=== PATIENT | female | born 1975 | race African-American/Black ===

== ENCOUNTER 2019-08-30 08:22 | Emergency (ER) | payer OTHER ==
[~2019-08-30] VITALS: Ht 172.7 cm; Wt 81.7 kg
[2019-08-30] MEDS ORDERED: PENICILLIN VK500 M1 PO (09:16)
[2019-08-30] MEDS ORDERED: IBUPROFEN 600600 M1 PO (09:16)
[2019-08-30] MEDS ORDERED: DIFLUCAN150 MG PO (09:16)
[2019-08-30] MEDS ORDERED: PROTONIX 20 MG20 MG PO (09:16)
[2019-08-30 09:20] VITALS: BP 121/70
== END 2019-08-30 09:32 | disposition home or self-care (01) ==
LOC: ER 08:22
DX: K05.00 Acute gingivitis, plaque induced (principal); Z87.442 Personal history of urinary calculi

== ENCOUNTER 2020-01-04 10:29 | Emergency (ER) | payer OTHER ==
[~2020-01-04] VITALS: Ht 172.7 cm; Wt 81.7 kg
[~2020-01-04 10:29] MED LIST: DIFLUCAN150 MG PO; IBUPROFEN 600600 M1 PO; PENICILLIN VK500 M1 PO; PROTONIX 20 MG20 MG PO
[2020-01-04] MEDS ORDERED: ADVIL200 M3 PO (10:45)
[2020-01-04] MEDS ORDERED: ADVIL100 M3 PO (10:47)
[2020-01-04 11:28] LABS: ABSOLUTE NEUTROPHILS 1.8 thou/uL (1.4-8.2); BASOPHILS 0.9 % (0.0-2.0); EOSINOPHILS 0.6 % (0.0-3.0); HEMATOCRIT 36.4 % (37.0-47.0); HEMOGLOBIN 11.7 gm/dL (12.0-15.0); LYMPHOCYTES 37.2 % (24.0-44.0); MCH 27.3 pg (26.0-34.0); MCHC 32.1 g/dL (28.0-37.0); MCV 85.3 fL (80.0-100.0); MONOCYTES 10.8 % (1.0-8.0); PLATELET COUNT 212 thou/uL (150-400); POLYS 50.5 % (36.0-66.0); RBC 4.27 mil/uL (4.20-5.00); RDW 17.1 % (10.5-14.5); WBC 3.6 thou/uL (4.0-11.0)
[2020-01-04 11:38] LABS: CALCIUM 9.8 mg/dL (8.5-10.1); CREATININE 0.8 mg/dL (0.6-1.0); MAGNESIUM 1.8 mg/dL (1.8-2.4); POTASSIUM 3.9 mmol/L (3.5-5.1)
[2020-01-04 11:50] VITALS: BP 127/73
[2020-01-04] MEDS ORDERED: MECLIZINE HCL25 M1 PO (11:50)
== END 2020-01-04 11:50 | disposition home or self-care (01) ==
LOC: ER 10:29
PROVIDERS: Emergency Medicine
DX: R42 Dizziness and giddiness (principal); Z79.899 Other long term (current) drug therapy; Z79.1 Long term (current) use of non-steroidal anti-inflammatories (NSAID)

== ENCOUNTER 2020-01-31 10:09 | Emergency (ER) | payer OTHER ==
[~2020-01-31] VITALS: Ht 172.7 cm; Wt 83.9 kg
[~2020-01-31 10:09] MED LIST changes: +ADVIL100 M3 PO; +ADVIL200 M3 PO; +MECLIZINE HCL25 M1 PO
[2020-01-31] MEDS ORDERED: FLEXERIL PO (11:34)
[2020-01-31 12:06] VITALS: BP 126/53
== END 2020-01-31 12:09 | disposition home or self-care (01) ==
LOC: ER 10:09
DX: S46.812A Strain of other muscles, fascia and tendons at shoulder and upper arm level, left arm, initial encounter (principal); M62.830 Muscle spasm of back; K21.9 Gastro-esophageal reflux disease without esophagitis; Z87.442 Personal history of urinary calculi; V49.59XA Passenger injured in collision with other motor vehicles in traffic accident, initial encounter; Y93.89 Activity, other specified; Y92.413 State road as the place of occurrence of the external cause; Y99.9 Unspecified external cause status

== ENCOUNTER 2020-03-31 23:17 | Emergency (ER) | payer OTHER ==
[~2020-03-31] VITALS: Ht 172.7 cm; Wt 81.7 kg
[~2020-03-31 23:17] MED LIST changes: +FLEXERIL PO
[2020-03-31 23:27] VITALS: BP 123/82
[2020-04-01 00:16] LABS: URINE BILIRUBIN NEGATIVE (Negative); URINE BLOOD NEGATIVE (Negative); URINE CLARITY CLEAR; URINE COLOR YELLOW; URINE GLUCOSE-RANDOM* NEGATIVE (Negative); URINE KETONES NEGATIVE (Negative); URINE LEUKOCYTES-REFLEX TRACE (Negative); URINE NITRITE-REFLEX NEGATIVE (Negative); URINE PROTEIN (DIPSTICK) NEGATIVE (Negative); URINE SPECIFIC GRAVITY >= 1.030 (1.005-1.035)
== END 2020-04-01 00:45 | disposition home or self-care (01) ==
LOC: ER 23:17
PROVIDERS: Emergency Medicine
DX: B37.3 Candidiasis of vulva and vagina (principal); K21.9 Gastro-esophageal reflux disease without esophagitis; F41.9 Anxiety disorder, unspecified; Z87.442 Personal history of urinary calculi

== ENCOUNTER 2021-04-19 11:58 | Emergency (ER) | payer OTHER ==
[~2021-04-19] VITALS: Ht 172.7 cm; Wt 81.7 kg
[2021-04-19 12:23] LABS: URINE BILIRUBIN NEGATIVE (Negative); URINE BLOOD 3+ (Negative); URINE CLARITY CLOUDY; URINE COLOR YELLOW; URINE GLUCOSE-RANDOM* NEGATIVE (Negative); URINE KETONES 1+ (Negative); URINE LEUKOCYTES-REFLEX NEGATIVE (Negative); URINE NITRITE-REFLEX NEGATIVE (Negative); URINE PROTEIN (DIPSTICK) NEGATIVE (Negative); URINE SPECIFIC GRAVITY >= 1.030 (1.005-1.035); URINE UROBILINOGEN 0.2 E.U./dl (0.2-1.0)
[2021-04-19 12:34] LABS: BACTERIA-REFLEX 1-9 Few /HPF (None Seen); CASTS None Seen /LPF (None Seen); CRYSTALS None Seen /LPF (None Seen); SQUAMOUS 0-3 Few /LPF (0-3); URINE RBC >20 Many /HPF (NONE SEEN); URINE WBC-REFLEX 0-5 Rare /HPF (0-5)
[2021-04-19 15:15] VITALS: BP 129/79
== END 2021-04-19 15:15 | disposition home or self-care (01) ==
LOC: ER 11:58
PROVIDERS: Emergency Medicine
DX: N93.8 Other specified abnormal uterine and vaginal bleeding (principal); K21.9 Gastro-esophageal reflux disease without esophagitis; F41.9 Anxiety disorder, unspecified; Z87.442 Personal history of urinary calculi

== ENCOUNTER 2021-05-22 08:16 | Emergency (ER) | payer OTHER ==
[~2021-05-22] VITALS: Ht 172.7 cm; Wt 80.7 kg
[2021-05-22 08:21] VITALS: BP 125/87
[2021-05-22 09:08] LABS: URINE BILIRUBIN NEGATIVE (Negative); URINE BLOOD NEGATIVE (Negative); URINE CLARITY CLEAR; URINE COLOR YELLOW; URINE GLUCOSE-RANDOM* NEGATIVE (Negative); URINE KETONES NEGATIVE (Negative); URINE LEUKOCYTES-REFLEX TRACE (Negative); URINE NITRITE-REFLEX NEGATIVE (Negative); URINE PROTEIN (DIPSTICK) NEGATIVE (Negative); URINE SPECIFIC GRAVITY 1.025 (1.005-1.035); URINE UROBILINOGEN 0.2 E.U./dl (0.2-1.0)
== END 2021-05-22 09:20 | disposition home or self-care (01) ==
LOC: ER 08:16
PROVIDERS: Emergency Medicine
DX: B37.3 Candidiasis of vulva and vagina (principal); K21.9 Gastro-esophageal reflux disease without esophagitis; F41.9 Anxiety disorder, unspecified; Z87.442 Personal history of urinary calculi